=== PATIENT | female | born 1990 | race Two or more races ===

== ENCOUNTER 2019-01-27 14:04 | Inpatient (IN) | payer OTHER ==
[~2019-01-27] VITALS: Ht 152.4 cm; Wt 67.1 kg
== END 2019-02-13 14:26 | disposition home or self-care (01) | DRG 807 ==
LOC: LDR 02-11 09:16 → OB/GYN 02-11 09:16
PROVIDERS: ADMIT Obstetrics & Gynecology
PROC: 10E0XZZ Delivery of Products of Conception, External Approach (ICD-10-PCS; principal; 2019-02-11)
PROC: 10907ZC Drainage of Amniotic Fluid, Therapeutic from Products of Conception, Via Natural or Artificial Opening (ICD-10-PCS; 2019-02-11)
PROC: 3E033VJ Introduction of Other Hormone into Peripheral Vein, Percutaneous Approach (ICD-10-PCS; 2019-02-11)
PROC: 4A1HXCZ Monitoring of Products of Conception, Cardiac Rate, External Approach (ICD-10-PCS; 2019-02-11)
DX: O80 Encounter for full-term uncomplicated delivery (principal); Z37.0 Single live birth; Z3A.39 39 weeks gestation of pregnancy

== ENCOUNTER 2025-01-18 18:12 | Emergency (ER) | payer OTHER ==
[~2025-01-18] VITALS: Ht 157.5 cm; Wt 59.0 kg
[2025-01-18] MEDS ORDERED: GUAIFENESIN/DEXTROMETHORPHAN 100MG/10ML BLIST.PACK PO ONE ×2 (19:15→20:24)
[2025-01-18] MEDS ORDERED: CETIRIZINE HCL 5 MG/5 ML ML PO ONE (19:15)
[2025-01-18] MEDS ORDERED: CETIRIZINE HCL 5MG/5ML BLIST.PACK PO ONE (20:23)
[2025-01-18 20:47] LABS: BASO % 0.5 % (0.1-1.2); EOS # 0.17 (0.04-0.54); EOS % 1.8 % (0.7-7.0); LYMPH # 3.75 (1.18-3.74); LYMPH % 39.3 % (19.3-53.1); MEAN PLATELET VOLUME 10.20 fl (9.4-12.4); MONO # 0.46 (0.24-0.82); MONO % 4.8 % (4.7-12.5); NEUT # 5.10 (1.56-6.13); NEUT % 53.4 % (34.0-71.1); RED CELL DISTRIBUTION WIDTH 12.3 % (11.6-14.4)
[2025-01-18 21:19] LABS: COVID-19 AG NEGATIVE (NEGATIVE)
[2025-01-18] MEDS ORDERED: TUSSIN DM LIQU118 ML PO (21:57)
[2025-01-18] MEDS ORDERED: ZYRTEC10 MG PO (21:57)
== END 2025-01-18 22:33 | disposition home or self-care (01) ==
LOC: ER 18:12
PROVIDERS: General Practice
DX: J00 Acute nasopharyngitis [common cold] (principal); Z20.822 Contact with and (suspected) exposure to COVID-19